=== PATIENT | female | born 1975 | race African-American/Black ===

== ENCOUNTER 2016-02-23 09:54 | Emergency (ER) | payer OTHER ==
[~2016-02-23] VITALS: Ht 152.4 cm; Wt 48.1 kg
[~2016-02-23 09:54] MED LIST: BACTRIM DS TAB1 EACH PO; TRAMADOL 50 MG50 MG PO
[2016-02-23 10:05] LABS: URINE BILIRUBIN NEGATIVE (Negative); URINE BLOOD TRACE (Negative); URINE COLOR YELLOW; URINE GLUCOSE-RANDOM* NEGATIVE (Negative); URINE KETONES NEGATIVE (Negative); URINE NITRITE POSITIVE (Negative); URINE PROTEIN (DIPSTICK) NEGATIVE (Negative); URINE SPECIFIC GRAVITY >= 1.030 (1.003-1.035); URINE UROBILINOGEN 0.2 E.U./dl (0.2-1.0)
[2016-02-23 10:10] LABS: BACTERIA >30 Many /HPF (None Seen); CASTS None Seen /LPF (None Seen); CRYSTALS None Seen /LPF (None Seen); SQUAMOUS 0-3 Few /LPF (0-3); URINE RBC 0-2 Rare /HPF (0-2); URINE WBC 0-5 Rare /HPF (0-5)
[2016-02-23 10:50] LABS: ABSOLUTE NEUTROPHILS 3.3 thou/uL (1.4-8.2); BASOPHILS 1.1 % (0.0-2.0); EOSINOPHILS 0.9 % (0.0-3.0); HEMATOCRIT 31.1 % (37.0-47.0); LYMPHOCYTES 32.3 % (24.0-44.0); MCH 24.8 pg (26.0-34.0); MCHC 32.2 % (28.0-37.0); MCV 76.8 fL (80.0-100.0); MONOCYTES 9.5 % (1.0-8.0); PLATELET COUNT 362 thou/uL (150-400); POLYS 56.2 % (36.0-66.0); RBC 4.05 mil/uL (4.20-5.00); RDW 15.6 % (10.5-14.5); WBC 5.9 thou/uL (4.0-11.0)
[2016-02-23 10:51] LABS: MANUAL DIFF NO
[2016-02-23 10:59] LABS: CREATININE 0.9 mg/dL (0.6-1.3); POTASSIUM 3.8 mmol/L (3.5-5.1)
[2016-02-23 11:04] LABS: ALBUMIN 3.6 g/dL (3.4-5.0); TOTAL BILIRUBIN 0.3 mg/dL (<0.1-1.0); TOTAL PROTEIN 7.2 g/dL (6.4-8.2)
[2016-02-23] MEDS ORDERED: ZOFRAN ODT8 MG PO (12:29)
[2016-02-23] MEDS ORDERED: TRAMADOL 50 MG50 MG PO (12:29)
[2016-02-23 13:30] VITALS: BP 109/64
== END 2016-02-23 13:34 | disposition home or self-care (01) ==
LOC: ER 09:54
PROVIDERS: Nurse Practitioner Family
DX: K56.7 Ileus, unspecified (principal); D64.9 Anemia, unspecified; R11.2 Nausea with vomiting, unspecified; R19.7 Diarrhea, unspecified

== ENCOUNTER 2020-08-19 12:24 | Emergency (ER) | payer OTHER ==
[~2020-08-19] VITALS: Ht 152.4 cm; Wt 56.7 kg
[~2020-08-19 12:24] MED LIST changes: +ZOFRAN ODT8 MG PO
[2020-08-19 13:24] LABS: URINE BILIRUBIN NEGATIVE (Negative); URINE BLOOD TRACE (Negative); URINE COLOR YELLOW; URINE GLUCOSE-RANDOM* NEGATIVE (Negative); URINE KETONES NEGATIVE (Negative); URINE NITRITE-REFLEX NEGATIVE (Negative); URINE PROTEIN (DIPSTICK) NEGATIVE (Negative); URINE SPECIFIC GRAVITY 1.025 (1.005-1.035); URINE UROBILINOGEN 0.2 E.U./dl (0.2-1.0)
[2020-08-19 13:26] LABS: URINE CLARITY HAZY; URINE LEUKOCYTES-REFLEX 1+ (Negative)
[2020-08-19 13:38] LABS: CASTS None Seen /LPF (None Seen); CRYSTALS None Seen /LPF (None Seen); SQUAMOUS >10 Many /LPF (0-3); URINE RBC 1-2 Rare /HPF (NONE SEEN); URINE WBC-REFLEX 6-15 Few /HPF (0-5)
[2020-08-19 13:39] LABS: YEAST-REFLEX Present (None Seen)
[2020-08-19 14:01] LABS: HEMATOCRIT 33.1 % (37.0-47.0); HEMOGLOBIN 9.7 gm/dL (12.0-15.0); MCH 20.3 pg (26.0-34.0); MCHC 29.2 g/dL (28.0-37.0); MCV 69.5 fL (80.0-100.0); PLATELET COUNT 432 thou/uL (150-400); RBC 4.76 mil/uL (4.20-5.00); RDW 20.1 % (10.5-14.5); WBC 3.4 thou/uL (4.0-11.0)
[2020-08-19 14:04] VITALS: BP 112/73
[2020-08-19 14:06] LABS: ANION GAP 10 mmol/L (7-16); BUN 11 mg/dL (7-18); CALCIUM 8.7 mg/dL (8.5-10.1); CHLORIDE 104 mmol/L (98-107); CO2 25 mmol/L (21-32); CREATININE 1.1 mg/dL (0.6-1.0); GLUCOSE 89 mg/dL (74-106); POTASSIUM 3.8 mmol/L (3.5-5.1); SODIUM 139 mmol/L (136-145)
[2020-08-19 14:24] LABS: ALBUMIN 3.7 g/dL (3.4-5.0); DIRECT BILIRUBIN < 0.1 mg/dL (<0.1-0.2); LIPASE 150 U/L (73-393); SGOT 337 U/L (15-37); SGPT 235 U/L (14-59); TOTAL BILIRUBIN 0.2 mg/dL (0.2-1.0)
[2020-08-19 14:51] LABS: ABSOLUTE NEUTROPHILS 1.5 thou/uL (1.4-8.2); ANISOCYTOSIS 1+; HYPOCHROMASIA 1+; MICROCYTES 1+
[2020-08-19] MEDS ORDERED: DIFLUCAN150 MG PO (15:32)
[2020-08-19] MEDS ORDERED: CEPHALEXIN500 MG PO (15:32)
[2020-08-19] MEDS ORDERED: ONDANSETRON HCL4 M2 PO (15:32)
[2020-08-19] MEDS ORDERED: TESSALON PERLE100 MG PO (15:32)
== END 2020-08-19 16:07 | disposition home or self-care (01) ==
LOC: ER 12:24
PROVIDERS: Nurse Practitioner
DX: U07.1 COVID-19 (principal); E86.0 Dehydration; N39.0 Urinary tract infection, site not specified; B37.9 Candidiasis, unspecified; Z79.899 Other long term (current) drug therapy